=== PATIENT | male | born 1960 | race Caucasian/White ===

== ENCOUNTER 2020-01-20 12:57 | Emergency (ER) | payer BC ==
--- NOTE | 2020-01-20 13:16 | TELE ---
HPI Do you have fever,cough or shortness of breath?: Yes - General Reason For Visit: COVID TESTING Time Seen by Provider: 01/20/20 13:13 History Source: Patient Exam Limitations: Clinical Condition - History of Present Illness Timing/Duration: unsure 01/20/20 13:13 Patient with no significant past medical history presented to [facility] urgent care for COVID testing due to required by employer before he can return to work after returning from [place] few days ago. Patient reported he visited family members in [place]. Denies fever, cough, shortness of breath, palpitations. Denies any symptoms. Denies any known contact with positive coving. Past History - Medical History Allergies/Adverse Reactions: Allergies Allergy/AdvReac Type Severity Reaction Status Date / Time No Known Allergies Allergy Unverified 09/11/13 15:15 Review of Systems - Review of Systems Able to Perform ROS?: Yes Limited Syriac proficient: No Constitutional: No: Chills, Fever, Malaise HEENTM: No: Symptoms Reported, See HPI, Eye Pain, Blurred Vision, Tearing, Recent change in vision, Double Vision, Cataracts, Ear Pain, Ocular Prothesis, Ear Discharge, Nose Pain, Nose Congestion, Tinnitus, Nose Bleeding, Hearing Loss, Throat Pain, Throat Swelling, Mouth Pain, Dental Problems, Difficulty Swallowing, Mouth Swelling, Other Respiratory: No: Symptoms reported, See HPI, Cough, Orthopnea, Shortness of Breath, SOB with Exertion, SOB at Rest, Stridor, Wheezing, Productive cough, Hemoptysis, Other Cardiac (ROS): No: Symptoms Reported, See HPI, Chest Pain, Edema, Irregular Heart Rate, Lightheadedness, Palpitations, Syncope, Chest Tightness, Other ABD/GI: No: Symptoms Reported, Nausea, Vomiting Musculoskeletal: No: Symptoms Reported Integumentary: No: Symptoms Reported, Rash Neurological: No: Symptoms reported, Headache, Dizziness All Other Systems: Reviewed and Negative *Physical Exam - Physical Exam General Appearance: Yes: Nourished, Appropriately Dressed. No: Apparent Distress HEENT: positive: Normal ENT Inspection Respiratory/Chest: negative: Respiratory Distress, Accessory Muscle Use Musculoskeletal: positive: Normal Inspection Extremity: positive: Normal Inspection, Normal Range of Motion Integumentary: positive: Normal Color Neurologic: positive: Fully Oriented, Alert, Normal Mood/Affect, Normal Response, Motor Strength 5/5 - Medical Decision Making 01/20/20 13:14 Patient with no significant past medical history presented to [facility] urgent care for COVID testing due to required by employer before he can return to work after returning from [place] few days ago. Patient reported he visited family members in [place]. Denies fever, cough, shortness of breath, palpitations. Denies any symptoms. Denies any known contact with positive coving. Patient afebrile and asymptomatic at this time. Discussed self quarantine instructions until negative COVID tests. COVID tests ordered as per patient's request. Patient to go to [facility] today for complete testing. Patient stable for discharge Discharge Diagnosis at time of Disposition: Counseled about COVID-19 virus infection - Referrals Follow-up Referral(s): Adiel Bach MD [Primary Care Provider] - - Patient Instructions - Discharge Disposition: HOME Condition at time of Disposition: Stable
== END 2020-01-20 13:16 | disposition home or self-care (01) ==
LOC: JVIRT 12:57
DX: Z11.59 Encounter for screening for other viral diseases (principal)
CPT/HCPCS: Q3014-GT; U0003